=== PATIENT | male | born 2000 | race African-American/Black ===

== ENCOUNTER 2020-02-03 16:44 | Emergency (ER) | payer BC ==
[~2020-02-03] VITALS: Ht 182.9 cm; Wt 90.7 kg
[2020-02-03] MEDS ORDERED: Lidocaine 2% MPF 5ml Vial INJ ONE (17:15)
--- NOTE | 2020-02-03 18:39 | Emergency Room Report ---
History of Present Illness General Chief Complaint: Lower Extremity Injury Source: Patient Present Illness HPI 19-year-old male presents to the emergency department complaining of 2/10 in severity pain/tenderness of the left great toe. Pt. reports he has a laceration to the bottom of his left great toe that was sustained this afternoon. Not taking blood thinning medications. Pain with palpation. Patient is able to weight-bear. No suspicion of retained foreign bodies. Denies paresthesias. Patient reports being up-to-date with tetanus vaccination. No other aggravating or relieving factors. 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 COVID-19 Screening: Negative COVID-19 COVID-19 Testing Source: SENIOR MANAGEMENT CONSULTANT Patient History Past Medical History: see triage record Past Surgical History: none Pertinent Family History: none Immunizations: UTD Reviewed Nursing Documentation: PMH: Agreed; PSxH: Agreed Nursing Documentation-PMH Past Medical History: No Stated History Review of Systems All Other Systems: negative except mentioned in HPI Physical Exam Vital Signs Date Time Temp Pulse Resp B/P (MAP) Pulse Ox O2 Delivery O2 Flow Rate FiO2 02/03/20 16:52 98.1 87 16 151/88 (109) 96 Room Air Sp02 EP Interpretation: reviewed, normal General Appearance: no apparent distress, alert, GCS 15, non-toxic Head: normocephalic, atraumatic Eyes: bilateral eye normal inspection, bilateral eye PERRL ENT: hearing grossly normal, normal voice Neck: full range of motion Respiratory: lungs clear, normal breath sounds, speaking full sentences Cardiovascular #1: regular rate, rhythm, normal capillary refill Musculoskeletal: normal range of motion, gait/station normal, non-tender Neurologic: alert, motor strength/tone normal, oriented x3, sensory intact, responsive, speech normal Psychiatric: judgement/insight normal Skin: laceration - plantar Left great toe laceration approx 2.5 cm in length. Not bleeding at this time. No visible foreign body. Procedures Laceration/Wound Repair Laceration/Wound Repair : Consent: Verbal Wound Location: lower extremity - Left great toe Wound's Depth, Shape: flap Wound Length (cm): 2 Wound Explored: clean Irrigated w/ Saline (ccs): 500 Anesthesia: 1% Lidocaine Volume Anesthetic (ccs): 5 Wound Repaired With: sutures Suture Size/Type: 3:0, other - ethilon Number of Sutures: 6 Sterile Dressing Applied?: Yes Splint Applied?: No Sling Applied?: No Patient Tolerated: Well Complications: None Progress Pt. given pair of crutches. d/w pt. importance of being non-weight bearing. Medical Decision Making PA Attestation Dr. Savage is my supervising Physician whom patient management has been discussed with. Diagnostic Impression: Primary Impression: Laceration of toe of left foot without foreign body present Qualified Codes: S91.112A - Laceration without foreign body of left great toe without damage to nail, initial encounter ER Course 19-year-old male presents to the emergency department complaining of 2/10 in severity pain/tenderness of the left great toe. Pt. reports he has a laceration to the bottom of his left great toe that was sustained this afternoon. Not taking blood thinning medications. Pain with palpation. Patient is able to weight-bear. No suspicion of retained foreign bodies. Denies paresthesias. Patient reports being up-to-date with tetanus vaccination. No other aggravating or relieving factors. Ddx considered but are not limited to laceration, tendon injury, cellulitis, amputation Vital signs: are WNL, pt. is afebrile H&PE are most consistent with: plantar Left great toe laceration approx 2.5 cm in length ORDERS: none required at this time, the diagnosis is clinical ED INTERVENTIONS: -Tetanus vaccine was administered as pt. vaccination status was unknown. - The wound was copiously irrigated with normal saline, and explored for foreign body for which no FB was found. - pt. is anesthetized with plain 2%lidocaine utilizing ring block method. - The wound was approximated and closed using 6 interrupted 3.0 Ethilon sutures. -Bacitracin and sterile dressing is applied. -Patient is provided with crutches and instructed on their use Discussed with patient: That we make every effort to approximate the laceration as best as we can so that scarring will be as cosmetically pleasing as possible with our limited cosmetic skill set in the Emergency dept. Regardless of our best efforts there will be scarring after laceration repair. The extent of scarring is unknown at this time. DISCHARGE: At this time pt. is stable for d/c to home. Will provide printed patient care instructions, and any necessary prescriptions. Care plan and follow up instructions have been discussed with the patient prior to discharge. Last Vital Signs Date Time Temp Pulse Resp B/P (MAP) Pulse Ox O2 Delivery O2 Flow Rate FiO2 02/03/20 16:52 98.1 87 16 151/88 (109) 96 Room Air Status: improved Disposition: HOME, SELF-CARE Condition: Stable Scripts Cephalexin* (KEFLEX*) 500 Mg Capsule 500 MG ORAL EVERY 12 HOURS for 7 Days, #14 CAP 0 Refills Prov: Sirisha Rosales 02/03/20 Bacitracin (Bacitracin) 28.4 Gm Oint...g. 1 APPLIC TOPIC THREE TIMES A DAY, #28.3 GM Prov: Sirisha Rosales 02/03/20 Referrals: NON PHYSICIAN (PCP) [facility] Patient Instructions: Laceration Care, Adult, [id number] Additional Instructions: Take medications as directed. Sutures to be removed in approximately 10 days. Keep an eye for developing infections or severe scarring do not bear weight on the affected foot as much as possible to encourage proper healing Follow up with a Primary Care Provider in 3-5 days, even if your symptoms have resolved. Return sooner to ED if new symptoms occur, or current symptoms become worse. - Please note that this Emergency Department Report was dictated using [employer] technology software, occasionally this can lead to erroneous entry secondary to interpretation by the dictation equipment. Sirisha Rosales Feb 03, 2020 18:39
[2020-02-03] MEDS ORDERED: CEPHALEXIN500 MG ORAL (18:41)
[2020-02-03] MEDS ORDERED: BACITRACIN15 GM TOPIC (18:41)
[2020-02-03 18:54] VITALS: BP 142/83
== END 2020-02-03 18:55 | disposition home or self-care (01) ==
LOC: EMR 16:55
DX: S91.112A Laceration without foreign body of left great toe without damage to nail, initial encounter (principal); X58.XXXA Exposure to other specified factors, initial encounter; Y92.9 Unspecified place or not applicable
CPT/HCPCS: 99282